=== PATIENT | male | born 1965 | race Two or more races ===

== ENCOUNTER 2023-11-11 12:11 | Emergency (ER) | payer MEDICAID ==
[~2023-11-11] VITALS: Ht 157.5 cm; Wt 72.7 kg
[2023-11-11 12:13] VITALS: BP 137/87; PULSE 78; RESP 18; TEMP 98.5
[2023-11-11] MEDS ORDERED: METF-1211 PO (12:16)
[2023-11-11] MEDS: IBUPROFEN 600 MG TABLET PO ONE (13:27)
[2023-11-11] MEDS: ACETAMINOPHEN 500 MG TABLET PO ONE (13:27)
[2023-11-11] MEDS ORDERED: ACET-66 PO (13:43)
[2023-11-11] MEDS ORDERED: IBUP-1554 PO (13:43)
[2023-11-11] MEDS: GENTAMICIN SULFATE 0.3% OPHTHALMIC SOLUTION 5 ML OS ONE (14:21)
== END 2023-11-11 14:28 | disposition home or self-care (01) ==
LOC: EMS 12:12
DX: S00.12XA Contusion of left eyelid and periocular area, initial encounter (principal); E11.9 Type 2 diabetes mellitus without complications; W22.8XXA Striking against or struck by other objects, initial encounter; Y93.89 Activity, other specified; Y92.89 Other specified places as the place of occurrence of the external cause; Y99.8 Other external cause status
CPT/HCPCS: 99283

== ENCOUNTER 2023-11-17 09:55 | Emergency (ER) | payer MEDICAID ==
[~2023-11-17] VITALS: Ht 162.6 cm; Wt 77.3 kg
[~2023-11-17 09:55] MED LIST: ACET-66 PO; IBUP-1554 PO; METF-1211 PO
[2023-11-17 10:15] LABS: GLUCOMETER DEV NAME(LOC) ER.6; GLUCOSE,POINT OF CARE 141 MG/DL (70-110)
[2023-11-17] MEDS: PROPARACAINE HCL 0.5% 15 ML OPHTHALMIC SOLUTION OS ONE (11:50)
[2023-11-17] MEDS: FLUORESCEIN SODIUM 1 MG STRIP OS ONE (12:03)
[2023-11-17 14:24] VITALS: TEMP 98.5
[2023-11-17 14:30] VITALS: BP 124/81; PULSE 85; RESP 18
== END 2023-11-17 14:48 | disposition home or self-care (01) ==
LOC: EMS 09:55
DX: S00.12XA Contusion of left eyelid and periocular area, initial encounter (principal); E11.9 Type 2 diabetes mellitus without complications; X58.XXXA Exposure to other specified factors, initial encounter; Y93.89 Activity, other specified; Y92.89 Other specified places as the place of occurrence of the external cause; Y99.8 Other external cause status
CPT/HCPCS: 82962; 99283